=== PATIENT | female | born 1935 | race Caucasian/White ===

== ENCOUNTER 2017-10-16 15:46 | Inpatient (IN) ==
[2017-10-16] MEDS ORDERED: MAGNESIUM SULF RIDER 2 GM in PREMIX 1 EACH IV STA (15:59)
[2017-10-16] MEDS ORDERED: ONDANSETRON 4 MG/2 ML VIAL IV STA (15:59)
[2017-10-16] MEDS ORDERED: methylPREDNISolone SOD SUC 125 MG/2 ML VIAL IV STA (15:59)
[2017-10-16] MEDS ORDERED: LEVOFLOXACIN INJ 750 MG in PREMIX 1 EACH IV STA (15:59)
[2017-10-16] MEDS ORDERED: ALBUTEROL 2.5 MG/3 ML NEB RESP TX SCH (16:00)
[2017-10-16] MEDS ORDERED: ONDANSETRON 4 MG/2 ML VIAL ONE (16:02)
[2017-10-16] MEDS ORDERED: methylPREDNISolone SOD SUC 125 MG/2 ML VIAL ONE (16:02)
[2017-10-16] MEDS ORDERED: MAGNESIUM SULF RIDER 50 ML IV ONE (16:03)
[2017-10-16 16:35] LABS: Basophils % 0.1 % (0.0-0.8); Hematocrit 40.2 VOL% (35.7-47.0); Immature Granulocytes % 0.3 %; Immature Granulocytes Absolute 0.03 #; Lymphocytes % 10.7 % (21.3-54.2); Mean Corpuscular HGB Conc 34.8 GM/DL (32-36); Mean Corpuscular Hemoglobin 33 PG (27-34); Mean Corpuscular Volume 93.7 FL (87-102); Mean Platelet Volume 10.7 FL (9.6-12.0); Monocytes # 0.4 10*3/uL (0.11-0.8); Monocytes % 4.2 % (1.7-12.7); Neutrophils # 7.8 10*3/uL (1.4-7.4); Neutrophils % 84.7 % (38.7-73.9); Platelet Count 209 T/CUMM (130-400); Red Blood Count 4.29 MC/CUMM (3.8-5.5); Red Cell Distribution Width 13.2 % (9.3-17.3); White Blood Count 9.2 T/CUMM (4-12)
[2017-10-16] MEDS ORDERED: LEVOFLOXACIN INJ 150 ML IV ONE (16:38)
[2017-10-16 16:46] LABS: INR 1.1; PT Patient Result 11.3 SECS; Partial Thromboplastin Time 26.8 SECS (0-40)
[2017-10-16 16:55] LABS: Alanine Aminotransferase 25 U/L (13-56); Albumin 3.8 G/DL (3.4-5.0); Alkaline Phosphatase 41 U/L (45-117); Aspartate Amino Transferase 45 U/L (0-37); Blood Urea Nitrogen 23 MG/DL (7-18); CKMB % 5.1 %; Calcium 9.3 MG/DL (8.5-10.1); Glucose 172 MG/DL (74-106); Osmolality,Calculated 258.5 MOS/KG (273-304); Potassium 4.2 MMOL/L (3.5-5.1); Sodium 125 MMOL/L (136-145); Total Protein 7.3 G/DL (6.4-8.3); Troponin I Only < 0.015 NG/ML (0.00-0.045)
[2017-10-16 17:04] LABS: ABG Base Excess -2.3 MMOL/L (-2.5-2.5); ABG HCO3 22.5 MMOL/L (20-26); ABG Oxygen Saturation 97.6 % (95-100); ABG PH 7.298 (7.35-7.45)
[2017-10-16] MEDS ORDERED: ACETAMINOPHEN 325 MG TABLET PO PRN (17:53)
[2017-10-16] MEDS ORDERED: ALBUTEROL/IPRATROPIUM 3 ML NEB RESP TX PRN (17:55)
[2017-10-16] MEDS ORDERED: DEXTROSE 50% 25 GM/50 ML VIAL IV PRN (17:59)
[2017-10-16] MEDS ORDERED: FUROSEMIDE 40 MG/4 ML VIAL IV STA (17:59)
[2017-10-16] MEDS ORDERED: GLUCAGON 1 MG VIAL IM PRN (17:59)
[2017-10-16] MEDS ORDERED: FUROSEMIDE 40 MG/4 ML VIAL ONE (18:03)
[2017-10-16] MEDS: ALBUTEROL/IPRATROPIUM 3 ML NEB RESP TX SCH (19:42)
[2017-10-16] MEDS ORDERED: AMINOPHYLLINE 250 MG in SODIUM CHLORIDE 0.9% 100 ML IV ONE (20:13)
[2017-10-16 20:18] LABS: Apearance,Urine Clear (Clear); Glucose,Urine (UA) Negative (Negative); Ketones,Urine Negative (Negative); Protein,Urine 100 MG/DL; Urine Color Yellow (Yellow)
[2017-10-16 20:19] LABS: Bilirubin,Urine Negative (Negative); Blood, Urine Negative (Negative); Nitrite,Urine Negative (Negative); Urine Urobilinogen 0.2 EU/DL (0.2-1.0)
[2017-10-16] MEDS: AZTREONAM 2,000 MG in SYRINGE 1 EACH IV SCH (20:44)
[2017-10-16] MEDS: SODIUM CHLORIDE 0.9% 1,000 ML IV SCH (20:44)
[2017-10-16] MEDS: INSULIN REGULAR 100 UNIT/ML SUBCUT SCH (20:44)
[2017-10-16] MEDS: ALBUTEROL 2 MG TABLET PO SCH ×2 (20:44→23:25)
[2017-10-16] MEDS ORDERED: ENOXAPARIN 30 MG/0.3 ML SYRINGE SUBCUT SCH (21:00)
[2017-10-16] MEDS ORDERED: MORPHINE 2 MG/1 ML SYRINGE IV ONE (21:14)
[2017-10-16] MEDS ORDERED: MORPHINE 10 MG/1 ML VIAL IV ONE (21:30)
[2017-10-16] MEDS: ONDANSETRON 4 MG/2 ML VIAL IV PRN (21:32)
[2017-10-16 21:56] LABS: ABG Base Excess -3.3 MMOL/L (-2.5-2.5); ABG HCO3 21.5 MMOL/L (20-26); ABG Oxygen Saturation 91.2 % (95-100); ABG PCO2 46.1 MM HG (35-48); ABG PH 7.309 (7.35-7.45); ABG PO2 68.5 MM HG (80-95); ABG TCO2 20.7 MMOL/L (23-27); Allen Test Positive
[2017-10-16] MEDS: methylPREDNISolone SOD SUC 40 MG/1 ML VIAL IV SCH (23:25)
[2017-10-17] MEDS: ALBUTEROL/IPRATROPIUM 3 ML NEB RESP TX SCH ×4 (00:08→19:52)
[2017-10-17] MEDS: AMINOPHYLLINE 500 MG in SODIUM CHLORIDE 0.9% 480 ML IV SCH (00:35)
[2017-10-17 03:21] LABS: ABG HCO3 22.6 MMOL/L (20-26); ABG Oxygen Saturation 91.4 % (95-100); ABG PCO2 41.2 MM HG (35-48); ABG PH 7.361 (7.35-7.45); ABG PO2 64.7 MM HG (80-95); ABG TCO2 20.6 MMOL/L (23-27)
[2017-10-17 04:03] LABS: Eosinophils % 0.1 % (0.00-10.9); Hematocrit 34.9 VOL% (35.7-47.0); Hemoglobin 12.4 GM/DL (12.0-16.0); Immature Granulocytes % 0.3 %; Immature Granulocytes Absolute 0.02 #; Lymphocytes # 0.8 10*3/uL (1.4-4.0); Lymphocytes % 10.3 % (21.3-54.2); Mean Corpuscular HGB Conc 35.5 GM/DL (32-36); Mean Corpuscular Hemoglobin 32 PG (27-34); Mean Corpuscular Volume 90.9 FL (87-102); Mean Platelet Volume 10.2 FL (9.6-12.0); Monocytes # 0.2 10*3/uL (0.11-0.8); Monocytes % 2.9 % (1.7-12.7); Neutrophils # 6.3 10*3/uL (1.4-7.4); Neutrophils % 86.4 % (38.7-73.9); Platelet Count 191 T/CUMM (130-400); Red Blood Count 3.84 MC/CUMM (3.8-5.5); Red Cell Distribution Width 13.2 % (9.3-17.3); White Blood Count 7.3 T/CUMM (4-12)
[2017-10-17] MEDS: methylPREDNISolone SOD SUC 40 MG/1 ML VIAL IV SCH ×4 (04:27→22:02)
[2017-10-17] MEDS: AZTREONAM 2,000 MG in SYRINGE 1 EACH IV SCH ×4 (04:27→22:12)
[2017-10-17 04:39] LABS: Calcium 8.2 MG/DL (8.5-10.1); Osmolality,Calculated 253.1 MOS/KG (273-304); Thyroid Stimulating Hormone 3.07 uIU/ml (0.358-3.74)
[2017-10-17 05:03] LABS: CKMB % 4.5 %
[2017-10-17 05:05] LABS: Troponin I Only 0.778 NG/ML (0.00-0.045)
[2017-10-17] MEDS ORDERED: FUROSEMIDE 40 MG/4 ML VIAL IV ONE (05:19)
[2017-10-17] MEDS ORDERED: POTASSIUM CHLORIDE RIDER 10 MEQ in PREMIX 1 EACH IV PRN (05:20)
[2017-10-17] MEDS ORDERED: POTASSIUM CHLORIDE INJ 50 MEQ in SODIUM CHLORIDE 0.9% 500 ML IV ONE (05:30)
[2017-10-17] MEDS: ALBUTEROL 2 MG TABLET PO SCH ×3 (07:00→22:13)
[2017-10-17] MEDS: INSULIN REGULAR 100 UNIT/ML SUBCUT SCH ×4 (08:49→21:59)
[2017-10-17] MEDS: PANTOPRAZOLE 40 MG TABLET PO SCH (08:50)
[2017-10-17] MEDS: NICOTINE 14 MG/24 HR PATCH TRANSDERM SCH (08:50)
[2017-10-17] MEDS: MONTELUKAST 10 MG TABLET PO SCH (08:50)
[2017-10-17] MEDS: SODIUM CHLORIDE 0.9% 1,000 ML IV SCH (09:43)
[2017-10-17] MEDS: MORPHINE 10 MG/1 ML VIAL IV PRN ×2 (10:11→14:22)
[2017-10-17] MEDS ORDERED: PRAVASTATIN 40 MG TABLET PO SCH (11:30)
[2017-10-17] MEDS: ASPIRIN EC 325 MG TABLET PO SCH (12:17)
[2017-10-17] MEDS: amLODIPine 10 MG TABLET PO SCH (12:17)
[2017-10-17 13:05] LABS: CKMB % 3.5 %
[2017-10-17 13:12] LABS: Troponin I Only 1.69 NG/ML (0.00-0.045)
[2017-10-17] MEDS ORDERED: ENOXAPARIN 30 MG/0.3 ML SYRINGE SUBCUT ONE (13:44)
[2017-10-17] MEDS ORDERED: NITROGLYCERIN 2% OINT 1 INCH/GM PACK TOP SCH (14:00)
[2017-10-17 15:39] LABS: CKMB % 3.1 %; Troponin I Only 1.85 NG/ML (0.00-0.045)
[2017-10-17] MEDS: NITROGLYCERIN DRIP 50 MG/250 ML BOTTLE IV SCH (16:47)
[2017-10-17] MEDS: FUROSEMIDE 40 MG/4 ML VIAL IV SCH (17:21)
[2017-10-17] MEDS: ENOXAPARIN 60 MG/0.6 ML SYRINGE SUBCUT SCH (22:00)
[2017-10-18] MEDS: ALBUTEROL/IPRATROPIUM 3 ML NEB RESP TX SCH ×4 (01:20→19:25)
[2017-10-18] MEDS: MORPHINE 10 MG/1 ML VIAL IV PRN (03:37)
[2017-10-18] MEDS: AZTREONAM 2,000 MG in SYRINGE 1 EACH IV SCH ×2 (03:45→08:11)
[2017-10-18 05:19] LABS: Osmolality,Calculated 252.3 MOS/KG (273-304); Potassium 3.4 MMOL/L (3.5-5.1)
[2017-10-18] MEDS: methylPREDNISolone SOD SUC 40 MG/1 ML VIAL IV SCH ×4 (06:02→21:59)
[2017-10-18] MEDS: ALBUTEROL 2 MG TABLET PO SCH ×3 (06:05→21:51)
[2017-10-18 06:49] LABS: CKMB % 2.6 %
[2017-10-18 06:56] LABS: Troponin I Only 1.55 NG/ML (0.00-0.045)
[2017-10-18] MEDS: AMINOPHYLLINE 500 MG in SODIUM CHLORIDE 0.9% 480 ML IV SCH ×2 (07:07→20:34)
[2017-10-18] MEDS: ONDANSETRON 4 MG/2 ML VIAL IV PRN (07:38)
[2017-10-18] MEDS: POTASSIUM CHLORIDE 20 MEQ TABLET PO PRN ×3 (08:08→13:57)
[2017-10-18] MEDS: MONTELUKAST 10 MG TABLET PO SCH (08:08)
[2017-10-18] MEDS: ASPIRIN EC 325 MG TABLET PO SCH (08:08)
[2017-10-18] MEDS: NICOTINE 14 MG/24 HR PATCH TRANSDERM SCH (08:09)
[2017-10-18] MEDS: PANTOPRAZOLE 40 MG TABLET PO SCH (08:10)
[2017-10-18] MEDS: FUROSEMIDE 40 MG/4 ML VIAL IV SCH ×2 (08:10→16:24)
[2017-10-18] MEDS: INSULIN REGULAR 100 UNIT/ML SUBCUT SCH ×4 (08:10→22:10)
[2017-10-18] MEDS: ENOXAPARIN 60 MG/0.6 ML SYRINGE SUBCUT SCH ×2 (08:10→21:56)
[2017-10-18 08:13] LABS: Risk Ratio 2.25; VLDL CHOLESTEROL 13.2 MG/DL
[2017-10-18] MEDS: amLODIPine 10 MG TABLET PO SCH (08:13)
[2017-10-18] MEDS: SODIUM CHLORIDE 0.9% 1,000 ML IV SCH (13:31)
[2017-10-18] MEDS ORDERED: PHENOL 1.4% THROAT SPRAY 177 ML BOTTLE PO ONE (13:38)
[2017-10-18] MEDS ORDERED: PHENOL 1.4% THROAT SPRAY 177 ML BOTTLE PO PRN (13:38)
[2017-10-18] MEDS ORDERED: MAGNESIUM SULF RIDER 2 GM in PREMIX 1 EACH IV ONE (14:16)
[2017-10-18] MEDS ORDERED: COSYNTROPIN 0.25 MG VIAL IV ONE (15:00)
[2017-10-18] MEDS: AZTREONAM 1,000 MG in SYRINGE 1 EACH IV SCH ×2 (16:24→22:18)
[2017-10-18] MEDS ORDERED: LEVOFLOXACIN INJ 750 MG in PREMIX 1 EACH IV SCH (18:00)
[2017-10-18] MEDS: MULTIVITAMIN (OCUVITE) TABLET PO SCH (21:50)
[2017-10-18] MEDS: PRAVASTATIN 40 MG TABLET PO SCH (21:51)
[2017-10-18] MEDS: ALPRAZolam 0.5 MG TABLET PO PRN (22:24)
[2017-10-19] MEDS: ALBUTEROL/IPRATROPIUM 3 ML NEB RESP TX SCH ×4 (01:37→19:47)
[2017-10-19] MEDS: SODIUM CHLORIDE 0.9% 1,000 ML IV SCH (01:45)
[2017-10-19] MEDS: AZTREONAM 1,000 MG in SYRINGE 1 EACH IV SCH ×4 (03:58→20:44)
[2017-10-19] MEDS ORDERED: COSYNTROPIN 0.25 MG VIAL IV ONE ×2 (04:00→08:00)
[2017-10-19 05:10] LABS: Calcium 7.6 MG/DL (8.5-10.1); Osmolality,Calculated 259.9 MOS/KG (273-304); Potassium 4.3 MMOL/L (3.5-5.1)
[2017-10-19] MEDS: methylPREDNISolone SOD SUC 40 MG/1 ML VIAL IV SCH ×4 (05:37→21:01)
[2017-10-19] MEDS: ALBUTEROL 2 MG TABLET PO SCH ×3 (06:17→21:01)
[2017-10-19] MEDS: NITROGLYCERIN DRIP 50 MG/250 ML BOTTLE IV SCH (06:24)
[2017-10-19] MEDS: INSULIN REGULAR 100 UNIT/ML SUBCUT SCH ×4 (08:35→20:26)
[2017-10-19] MEDS: FUROSEMIDE 40 MG/4 ML VIAL IV SCH ×2 (08:35→16:36)
[2017-10-19] MEDS: MULTIVITAMIN (OCUVITE) TABLET PO SCH ×2 (08:36→20:43)
[2017-10-19] MEDS: NICOTINE 14 MG/24 HR PATCH TRANSDERM SCH (08:36)
[2017-10-19] MEDS: ALPRAZolam 0.5 MG TABLET PO PRN ×2 (08:36→20:43)
[2017-10-19] MEDS: MONTELUKAST 10 MG TABLET PO SCH (08:36)
[2017-10-19] MEDS: PANTOPRAZOLE 40 MG TABLET PO SCH (08:38)
[2017-10-19] MEDS: amLODIPine 10 MG TABLET PO SCH (08:38)
[2017-10-19] MEDS: ASPIRIN EC 325 MG TABLET PO SCH (08:38)
[2017-10-19] MEDS: diphenhydrAMINE 25 MG/10 ML UDCUP PO PRN (11:39)
[2017-10-19] MEDS: DORNASE ALFA 2.5 MG/2.5 ML VIAL RESP TX SCH (19:59)
[2017-10-19] MEDS: PRAVASTATIN 40 MG TABLET PO SCH (20:43)
[2017-10-19] MEDS: POLYVINYL ALCOHOL 1.4% OPH SOLN 15 ML BOTTLE BOTH EYES PRN (20:43)
[2017-10-19] MEDS: ENOXAPARIN 60 MG/0.6 ML SYRINGE SUBCUT SCH (20:45)
[2017-10-19] MEDS: DOCUSATE SODIUM 100 MG CAPSULE PO PRN (21:57)
[2017-10-20] MEDS: ALBUTEROL/IPRATROPIUM 3 ML NEB RESP TX SCH ×4 (00:19→19:59)
[2017-10-20] MEDS: MORPHINE 10 MG/1 ML VIAL IV PRN (00:51)
[2017-10-20] MEDS: AZTREONAM 1,000 MG in SYRINGE 1 EACH IV SCH ×4 (05:20→21:27)
[2017-10-20] MEDS: methylPREDNISolone SOD SUC 40 MG/1 ML VIAL IV SCH ×3 (05:22→21:23)
[2017-10-20] MEDS: ALBUTEROL 2 MG TABLET PO SCH ×3 (05:23→21:42)
[2017-10-20 05:29] LABS: Basophils % 0.1 % (0.0-0.8); Hematocrit 33.7 VOL% (35.7-47.0); Hemoglobin 11.7 GM/DL (12.0-16.0); Immature Granulocytes % 0.8 %; Immature Granulocytes Absolute 0.11 #; Lymphocytes # 0.9 10*3/uL (1.4-4.0); Lymphocytes % 6.7 % (21.3-54.2); Mean Corpuscular HGB Conc 34.7 GM/DL (32-36); Mean Corpuscular Hemoglobin 33 PG (27-34); Mean Corpuscular Volume 94.7 FL (87-102); Monocytes # 0.3 10*3/uL (0.11-0.8); Monocytes % 2.5 % (1.7-12.7); Neutrophils # 12.1 10*3/uL (1.4-7.4); Neutrophils % 89.9 % (38.7-73.9); Platelet Count 205 T/CUMM (130-400); Red Blood Count 3.56 MC/CUMM (3.8-5.5); Red Cell Distribution Width 13.5 % (9.3-17.3); White Blood Count 13.5 T/CUMM (4-12)
[2017-10-20 05:48] LABS: Calcium 7.8 MG/DL (8.5-10.1); Osmolality,Calculated 268.6 MOS/KG (273-304); Potassium 4.1 MMOL/L (3.5-5.1)
[2017-10-20] MEDS: DORNASE ALFA 2.5 MG/2.5 ML VIAL RESP TX SCH ×2 (07:46→19:59)
[2017-10-20] MEDS: INSULIN REGULAR 100 UNIT/ML SUBCUT SCH ×4 (08:54→21:26)
[2017-10-20] MEDS: AMINOPHYLLINE 500 MG in SODIUM CHLORIDE 0.9% 480 ML IV SCH (09:34)
[2017-10-20] MEDS: MONTELUKAST 10 MG TABLET PO SCH (09:35)
[2017-10-20] MEDS: amLODIPine 10 MG TABLET PO SCH (09:35)
[2017-10-20] MEDS: DOCUSATE SODIUM 100 MG CAPSULE PO PRN ×2 (09:35→21:21)
[2017-10-20] MEDS: MULTIVITAMIN (OCUVITE) TABLET PO SCH ×2 (09:36→21:21)
[2017-10-20] MEDS: ISOSORBIDE MONONITRATE 30 MG TABLET PO SCH (09:36)
[2017-10-20] MEDS: PANTOPRAZOLE 40 MG TABLET PO SCH (09:36)
[2017-10-20] MEDS: ASPIRIN EC 325 MG TABLET PO SCH (09:36)
[2017-10-20] MEDS: NICOTINE 14 MG/24 HR PATCH TRANSDERM SCH (09:38)
[2017-10-20] MEDS: FUROSEMIDE 40 MG/4 ML VIAL IV SCH ×2 (09:39→15:34)
[2017-10-20] MEDS: THEOPHYLLINE ER (24 HR) 200 MG CAPSULE PO SCH (12:57)
[2017-10-20] MEDS: LACTULOSE 20 GM/30 ML UDCUP PO PRN (17:27)
[2017-10-20] MEDS ORDERED: LEVOFLOXACIN 750 MG TABLET PO SCH (20:00)
[2017-10-20] MEDS: diphenhydrAMINE 25 MG/10 ML UDCUP PO PRN (21:21)
[2017-10-20] MEDS: PRAVASTATIN 40 MG TABLET PO SCH (21:21)
[2017-10-20] MEDS: ENOXAPARIN 60 MG/0.6 ML SYRINGE SUBCUT SCH (21:22)
[2017-10-21] MEDS: ALBUTEROL/IPRATROPIUM 3 ML NEB RESP TX SCH ×4 (00:24→20:11)
[2017-10-21] MEDS: AZTREONAM 1,000 MG in SYRINGE 1 EACH IV SCH ×2 (02:08→09:37)
[2017-10-21] MEDS: ALPRAZolam 0.5 MG TABLET PO PRN ×2 (02:24→21:45)
[2017-10-21] MEDS: LACTULOSE 20 GM/30 ML UDCUP PO PRN ×2 (02:24→10:16)
[2017-10-21 05:21] LABS: Basophils % 0.1 % (0.0-0.8); Hematocrit 31.5 VOL% (35.7-47.0); Hemoglobin 11.2 GM/DL (12.0-16.0); Immature Granulocytes % 0.9 %; Immature Granulocytes Absolute 0.11 #; Lymphocytes % 7.6 % (21.3-54.2); Mean Corpuscular HGB Conc 35.6 GM/DL (32-36); Mean Corpuscular Hemoglobin 32 PG (27-34); Mean Corpuscular Volume 90.8 FL (87-102); Mean Platelet Volume 10.6 FL (9.6-12.0); Monocytes # 0.6 10*3/uL (0.11-0.8); Monocytes % 4.5 % (1.7-12.7); Neutrophils # 10.9 10*3/uL (1.4-7.4); Neutrophils % 86.9 % (38.7-73.9); Platelet Count 201 T/CUMM (130-400); Red Blood Count 3.47 MC/CUMM (3.8-5.5); Red Cell Distribution Width 13.6 % (9.3-17.3); White Blood Count 12.5 T/CUMM (4-12)
[2017-10-21 05:55] LABS: Calcium 7.7 MG/DL (8.5-10.1); Osmolality,Calculated 278.4 MOS/KG (273-304); Potassium 3.8 MMOL/L (3.5-5.1)
[2017-10-21] MEDS: ALBUTEROL 2 MG TABLET PO SCH ×3 (06:00→21:45)
[2017-10-21] MEDS: methylPREDNISolone SOD SUC 40 MG/1 ML VIAL IV SCH ×3 (06:00→21:45)
[2017-10-21] MEDS: DORNASE ALFA 2.5 MG/2.5 ML VIAL RESP TX SCH ×2 (08:14→20:11)
[2017-10-21] MEDS: INSULIN REGULAR 100 UNIT/ML SUBCUT SCH ×4 (09:17→20:23)
[2017-10-21] MEDS: THEOPHYLLINE ER (24 HR) 200 MG CAPSULE PO SCH (09:18)
[2017-10-21] MEDS: DOCUSATE SODIUM 100 MG CAPSULE PO PRN (09:18)
[2017-10-21] MEDS: ASPIRIN EC 325 MG TABLET PO SCH (09:18)
[2017-10-21] MEDS: ISOSORBIDE MONONITRATE 30 MG TABLET PO SCH (09:18)
[2017-10-21] MEDS: amLODIPine 10 MG TABLET PO SCH (09:18)
[2017-10-21] MEDS: NICOTINE 14 MG/24 HR PATCH TRANSDERM SCH (09:19)
[2017-10-21] MEDS: MONTELUKAST 10 MG TABLET PO SCH (09:19)
[2017-10-21] MEDS: FUROSEMIDE 40 MG/4 ML VIAL IV SCH (09:22)
[2017-10-21] MEDS: PANTOPRAZOLE 40 MG TABLET PO SCH (09:28)
[2017-10-21] MEDS: MULTIVITAMIN (OCUVITE) TABLET PO SCH ×2 (09:29→21:46)
[2017-10-21] MEDS: FAMOTIDINE 20 MG TABLET PO SCH (10:13)
[2017-10-21] MEDS: POLYVINYL ALCOHOL 1.4% OPH SOLN 15 ML BOTTLE BOTH EYES PRN (10:21)
[2017-10-21] MEDS ORDERED: BISACODYL 10 MG SUPP RECTAL ONE (12:41)
[2017-10-21] MEDS ORDERED: TUBERCULIN SKIN TEST 0.1 ML SYRINGE INTRADERM ONE (13:09)
[2017-10-21] MEDS: FUROSEMIDE 40 MG TABLET PO SCH (15:10)
[2017-10-21] MEDS ORDERED: ENOXAPARIN 30 MG/0.3 ML SYRINGE SUBCUT SCH (21:00)
[2017-10-21] MEDS: ONDANSETRON 4 MG/2 ML VIAL IV PRN (21:44)
[2017-10-21] MEDS: PRAVASTATIN 40 MG TABLET PO SCH (21:45)
[2017-10-22] MEDS: ALBUTEROL/IPRATROPIUM 3 ML NEB RESP TX SCH ×4 (00:54→19:52)
[2017-10-22] MEDS ORDERED: BISACODYL 10 MG SUPP RECTAL PRN (02:32)
[2017-10-22] MEDS ORDERED: DILTIAZEM 50 MG/10 ML VIAL IV ONE ×2 (02:37→03:00)
[2017-10-22] MEDS ORDERED: SODIUM PHOSPHATE ENEMA 133 ML BOTTLE RECTAL PRN (02:49)
[2017-10-22] MEDS ORDERED: SODIUM PHOSPHATE ENEMA 133 ML BOTTLE RECTAL ONE (03:00)
[2017-10-22 03:14] LABS: ABG Base Excess -2.5 MMOL/L (-2.5-2.5); ABG HCO3 22.1 MMOL/L (20-26); ABG Oxygen Saturation 87.3 % (95-100); ABG PCO2 40.4 MM HG (35-48); ABG PH 7.358 (7.35-7.45); ABG PO2 54.9 MM HG (80-95); ABG TCO2 20.5 MMOL/L (23-27)
[2017-10-22] MEDS: ONDANSETRON 4 MG/2 ML VIAL IV PRN (03:30)
[2017-10-22] MEDS ORDERED: ETOMIDATE 20 MG/10 ML VIAL IV ONE (04:06)
[2017-10-22] MEDS ORDERED: SUCCINYLCHOLINE 200 MG/10 ML VIAL ONE (04:06)
[2017-10-22] MEDS ORDERED: PROPOFOL 1,000 MG/100 ML BOTTLE IV ONE (04:44)
[2017-10-22] MEDS ORDERED: DILTIAZEM 100 MG VIAL.ADD IV ONE (04:45)
[2017-10-22] MEDS ORDERED: SODIUM CHLORIDE 0.9% 100 ML IV ONE (04:46)
[2017-10-22] MEDS ORDERED: PROPOFOL 1,000 MG/100 ML BOTTLE IV SCH (05:00)
[2017-10-22 05:15] LABS: Basophils % 0.1 % (0.0-0.8); Hematocrit 31.5 VOL% (35.7-47.0); Immature Granulocytes % 1.5 %; Immature Granulocytes Absolute 0.21 #; Lymphocytes % 6.6 % (21.3-54.2); Mean Corpuscular HGB Conc 34.9 GM/DL (32-36); Mean Corpuscular Hemoglobin 32 PG (27-34); Mean Corpuscular Volume 92.6 FL (87-102); Mean Platelet Volume 10.8 FL (9.6-12.0); Monocytes # 0.7 10*3/uL (0.11-0.8); Monocytes % 4.5 % (1.7-12.7); Neutrophils # 12.5 10*3/uL (1.4-7.4); Neutrophils % 87.3 % (38.7-73.9); Platelet Count 212 T/CUMM (130-400); Red Cell Distribution Width 13.5 % (9.3-17.3); White Blood Count 14.3 T/CUMM (4-12)
[2017-10-22] MEDS: DILTIAZEM INJ 100 MG in SODIUM CHLORIDE 0.9% 100 ML IV SCH ×3 (05:15→23:01)
[2017-10-22] MEDS ORDERED: SODIUM CHLORIDE 0.9% 1,000 ML IV PRN (05:41)
[2017-10-22 05:49] LABS: ABG Base Excess -5.5 MMOL/L (-2.5-2.5); ABG HCO3 19.8 MMOL/L (20-26); ABG Oxygen Saturation 93.4 % (95-100); ABG PCO2 52.7 MM HG (35-48); ABG PH 7.236 (7.35-7.45); ABG PO2 78.2 MM HG (80-95); ABG TCO2 20.8 MMOL/L (23-27)
[2017-10-22 05:53] LABS: Calcium 8.2 MG/DL (8.5-10.1); Osmolality,Calculated 282.2 MOS/KG (273-304); Potassium 3.7 MMOL/L (3.5-5.1)
[2017-10-22 05:59] LABS: Hematocrit 28.5 VOL% (35.7-47.0); Hemoglobin 9.9 GM/DL (12.0-16.0)
[2017-10-22] MEDS: PROPOFOL 1,000 MG/100 ML BOTTLE IV SCH ×3 (06:27→23:02)
[2017-10-22] MEDS: ALBUTEROL 2 MG TABLET PO SCH ×3 (06:35→21:55)
[2017-10-22] MEDS: methylPREDNISolone SOD SUC 40 MG/1 ML VIAL IV SCH ×3 (06:35→21:55)
[2017-10-22] MEDS: DORNASE ALFA 2.5 MG/2.5 ML VIAL RESP TX SCH ×2 (07:29→19:52)
[2017-10-22 08:31] LABS: Basophils % 0.1 % (0.0-0.8); Hemoglobin 9.9 GM/DL (12.0-16.0); Immature Granulocytes % 1.4 %; Immature Granulocytes Absolute 0.23 #; Lymphocytes % 5.9 % (21.3-54.2); Mean Corpuscular HGB Conc 35.4 GM/DL (32-36); Mean Corpuscular Hemoglobin 34 PG (27-34); Mean Corpuscular Volume 95.2 FL (87-102); Mean Platelet Volume 10.8 FL (9.6-12.0); Monocytes # 0.8 10*3/uL (0.11-0.8); Monocytes % 4.6 % (1.7-12.7); Neutrophils # 14.4 10*3/uL (1.4-7.4); Platelet Count 186 T/CUMM (130-400); Red Blood Count 2.94 MC/CUMM (3.8-5.5); Red Cell Distribution Width 13.8 % (9.3-17.3); White Blood Count 16.4 T/CUMM (4-12)
[2017-10-22] MEDS: INSULIN REGULAR 100 UNIT/ML SUBCUT SCH ×4 (08:44→20:19)
[2017-10-22] MEDS: amLODIPine 10 MG TABLET PO SCH (08:45)
[2017-10-22] MEDS: NICOTINE 14 MG/24 HR PATCH TRANSDERM SCH (08:50)
[2017-10-22] MEDS: FAMOTIDINE 20 MG TABLET PO SCH (08:50)
[2017-10-22] MEDS: ISOSORBIDE MONONITRATE 30 MG TABLET PO SCH (08:50)
[2017-10-22] MEDS: FUROSEMIDE 40 MG TABLET PO SCH ×2 (08:50→15:09)
[2017-10-22] MEDS ORDERED: ASPIRIN EC 81 MG TABLET PO SCH (09:00)
[2017-10-22] MEDS: MONTELUKAST 10 MG TABLET PO SCH (09:33)
[2017-10-22] MEDS: MULTIVITAMIN (OCUVITE) TABLET PO SCH ×2 (09:33→21:55)
[2017-10-22] MEDS ORDERED: LACTULOSE 20 GM/30 ML UDCUP PO PRN (11:02)
[2017-10-22] MEDS ORDERED: PHENYLEPHRINE DRIP 40 MG/250 ML PREMIX IV ONE (11:33)
[2017-10-22] MEDS: PHENYLEPHRINE DRIP 40 MG/250 ML PREMIX IV SCH ×2 (11:44→20:17)
[2017-10-22] MEDS: THEOPHYLLINE ER (24 HR) 200 MG CAPSULE PO SCH (14:31)
[2017-10-22] MEDS: THEOPHYLLINE 5.33 MG/ML 30 ML/BOTTLE PO SCH ×2 (15:08→21:55)
[2017-10-22 18:03] LABS: Hematocrit 30.2 VOL% (35.7-47.0); Hemoglobin 10.6 GM/DL (12.0-16.0)
[2017-10-22] MEDS: MEROPENEM 500 MG in SYRINGE 1 EACH IV SCH (19:07)
[2017-10-22] MEDS: VANCOMYCIN INJ 750 MG in SODIUM CHLORIDE 0.9% 250 ML IV SCH (20:16)
[2017-10-22] MEDS: PRAVASTATIN 40 MG TABLET PO SCH (21:55)
[2017-10-23] MEDS: ALBUTEROL/IPRATROPIUM 3 ML NEB RESP TX SCH ×4 (01:39→19:53)
[2017-10-23] MEDS: PHENYLEPHRINE DRIP 40 MG/250 ML PREMIX IV SCH ×4 (03:56→21:05)
[2017-10-23 04:57] LABS: Basophils % 0.1 % (0.0-0.8); Hematocrit 26.2 VOL% (35.7-47.0); Hemoglobin 9.2 GM/DL (12.0-16.0); Immature Granulocytes % 3.2 %; Immature Granulocytes Absolute 0.45 #; Lymphocytes # 0.9 10*3/uL (1.4-4.0); Lymphocytes % 6.5 % (21.3-54.2); Mean Corpuscular HGB Conc 35.1 GM/DL (32-36); Mean Corpuscular Hemoglobin 32 PG (27-34); Mean Corpuscular Volume 92.3 FL (87-102); Mean Platelet Volume 11.3 FL (9.6-12.0); Monocytes # 0.3 10*3/uL (0.11-0.8); Monocytes % 2.3 % (1.7-12.7); NRBC # 0.06 10*3/uL; Neutrophils # 12.5 10*3/uL (1.4-7.4); Neutrophils % 87.9 % (38.7-73.9); Platelet Count 210 T/CUMM (130-400); Red Blood Count 2.84 MC/CUMM (3.8-5.5); Red Cell Distribution Width 13.9 % (9.3-17.3); White Blood Count 14.2 T/CUMM (4-12)
[2017-10-23 05:29] LABS: Band Neutrophils 6 % (0-10); Lymphocytes 7 % (20-55); Microcytosis Slight; Myelocytes 1 %; Nucleated Red Blood Cells 2 (0-5); Platelet Estimate Normal; Segmented Neutrophils 85 % (50-85); Total Cells Counted 100
[2017-10-23] MEDS: PROPOFOL 1,000 MG/100 ML BOTTLE IV SCH ×3 (05:35→20:41)
[2017-10-23 05:38] LABS: Calcium 7.6 MG/DL (8.5-10.1); Osmolality,Calculated 284.9 MOS/KG (273-304)
[2017-10-23 06:07] LABS: ABG HCO3 21.1 MMOL/L (20-26); ABG Oxygen Saturation 99.5 % (95-100); ABG PH 7.303 (7.35-7.45); ABG TCO2 20.5 MMOL/L (23-27)
[2017-10-23] MEDS: methylPREDNISolone SOD SUC 40 MG/1 ML VIAL IV SCH ×3 (06:24→22:33)
[2017-10-23] MEDS: ALBUTEROL 2 MG TABLET PO SCH ×3 (06:24→22:33)
[2017-10-23] MEDS: THEOPHYLLINE 5.33 MG/ML 30 ML/BOTTLE PO SCH ×3 (06:24→21:25)
[2017-10-23] MEDS: DILTIAZEM INJ 100 MG in SODIUM CHLORIDE 0.9% 100 ML IV SCH ×3 (06:25→19:27)
[2017-10-23] MEDS: MEROPENEM 500 MG in SYRINGE 1 EACH IV SCH ×2 (07:06→18:38)
[2017-10-23] MEDS: DORNASE ALFA 2.5 MG/2.5 ML VIAL RESP TX SCH ×2 (07:30→19:53)
[2017-10-23] MEDS: INSULIN REGULAR 100 UNIT/ML SUBCUT SCH ×4 (08:59→20:15)
[2017-10-23] MEDS: amLODIPine 10 MG TABLET PO SCH (08:59)
[2017-10-23] MEDS: MULTIVITAMIN (OCUVITE) TABLET PO SCH ×2 (09:02→21:23)
[2017-10-23] MEDS: ISOSORBIDE MONONITRATE 30 MG TABLET PO SCH (09:02)
[2017-10-23] MEDS: MONTELUKAST 10 MG TABLET PO SCH (09:02)
[2017-10-23] MEDS: FAMOTIDINE 20 MG TABLET PO SCH (09:03)
[2017-10-23] MEDS: NICOTINE 14 MG/24 HR PATCH TRANSDERM SCH (09:03)
[2017-10-23] MEDS ORDERED: SODIUM CHLORIDE 0.9% 1,000 ML IV SCH (11:00)
[2017-10-23] MEDS: MORPHINE 10 MG/1 ML VIAL IV PRN (21:23)
[2017-10-23] MEDS: PRAVASTATIN 40 MG TABLET PO SCH (21:23)
[2017-10-24] MEDS: DILTIAZEM INJ 100 MG in SODIUM CHLORIDE 0.9% 100 ML IV SCH ×2 (01:47→08:32)
[2017-10-24] MEDS: ALBUTEROL/IPRATROPIUM 3 ML NEB RESP TX SCH ×4 (02:27→19:28)
[2017-10-24] MEDS: PHENYLEPHRINE DRIP 40 MG/250 ML PREMIX IV SCH ×4 (02:36→21:14)
[2017-10-24 04:27] LABS: ABG Base Excess -6.8 MMOL/L (-2.5-2.5); ABG HCO3 19.5 MMOL/L (20-26); ABG Oxygen Saturation 93.6 % (95-100); ABG PCO2 42.4 MM HG (35-48); ABG PH 7.281 (7.35-7.45); ABG PO2 77.3 MM HG (80-95); ABG TCO2 20.8 MMOL/L (23-27)
[2017-10-24] MEDS: PROPOFOL 1,000 MG/100 ML BOTTLE IV SCH ×4 (04:28→21:21)
[2017-10-24 06:06] LABS: Basophils % 0.2 % (0.0-0.8); Hematocrit 25.4 VOL% (35.7-47.0); Immature Granulocytes % 6.7 %; Immature Granulocytes Absolute 1.19 #; Lymphocytes # 1.2 10*3/uL (1.4-4.0); Mean Corpuscular HGB Conc 35.4 GM/DL (32-36); Mean Corpuscular Hemoglobin 33 PG (27-34); Mean Platelet Volume 10.7 FL (9.6-12.0); Monocytes # 0.4 10*3/uL (0.11-0.8); Neutrophils # 14.8 10*3/uL (1.4-7.4); Neutrophils % 84.1 % (38.7-73.9); Platelet Count 192 T/CUMM (130-400); Red Blood Count 2.73 MC/CUMM (3.8-5.5); Red Cell Distribution Width 14.4 % (9.3-17.3); White Blood Count 17.6 T/CUMM (4-12)
[2017-10-24] MEDS: methylPREDNISolone SOD SUC 40 MG/1 ML VIAL IV SCH ×3 (06:22→22:59)
[2017-10-24] MEDS: THEOPHYLLINE 5.33 MG/ML 30 ML/BOTTLE PO SCH ×3 (06:22→21:21)
[2017-10-24] MEDS: ALBUTEROL 2 MG TABLET PO SCH (06:22)
[2017-10-24 06:25] LABS: Calcium 7.1 MG/DL (8.5-10.1); Osmolality,Calculated 291.7 MOS/KG (273-304); Potassium 3.9 MMOL/L (3.5-5.1)
[2017-10-24] MEDS: MEROPENEM 500 MG in SYRINGE 1 EACH IV SCH ×2 (06:42→18:13)
[2017-10-24 06:45] LABS: Band Neutrophils 3 % (0-10); Lymphocytes 9 % (20-55); Nucleated Red Blood Cells 1 (0-5); Promyelocytes 1 %; Segmented Neutrophils 86 % (50-85); Total Cells Counted 100
[2017-10-24 06:46] LABS: Burr Cells Slight; Microcytosis Slight; Platelet Estimate Adequate
[2017-10-24] MEDS: DORNASE ALFA 2.5 MG/2.5 ML VIAL RESP TX SCH ×2 (08:35→19:32)
[2017-10-24] MEDS: INSULIN REGULAR 100 UNIT/ML SUBCUT SCH ×4 (08:35→20:22)
[2017-10-24] MEDS: MULTIVITAMIN (OCUVITE) TABLET PO SCH ×2 (09:20→20:22)
[2017-10-24] MEDS: MONTELUKAST 10 MG TABLET PO SCH (09:20)
[2017-10-24] MEDS: FAMOTIDINE 20 MG TABLET PO SCH (09:20)
[2017-10-24] MEDS: NICOTINE 14 MG/24 HR PATCH TRANSDERM SCH (09:20)
[2017-10-24] MEDS: ISOSORBIDE MONONITRATE 30 MG TABLET PO SCH (09:20)
[2017-10-24 11:15] LABS: ABG Base Excess -6.6 MMOL/L (-2.5-2.5); ABG HCO3 18.9 MMOL/L (20-26); ABG Oxygen Saturation 90.9 % (95-100); ABG PCO2 38.4 MM HG (35-48); ABG PH 7.307 (7.35-7.45); ABG PO2 62.9 MM HG (80-95); ABG TCO2 17.6 MMOL/L (23-27); Allen Test Positive
[2017-10-24] MEDS: AMIODARONE 200 MG TABLET PO SCH ×2 (11:29→20:22)
[2017-10-24] MEDS: VANCOMYCIN INJ 750 MG in SODIUM CHLORIDE 0.9% 250 ML IV SCH (19:33)
[2017-10-24] MEDS: PRAVASTATIN 40 MG TABLET PO SCH (20:22)
[2017-10-25] MEDS: ALBUTEROL/IPRATROPIUM 3 ML NEB RESP TX SCH ×4 (00:16→19:22)
[2017-10-25] MEDS: PHENYLEPHRINE DRIP 40 MG/250 ML PREMIX IV SCH ×3 (02:47→19:34)
[2017-10-25] MEDS: PROPOFOL 1,000 MG/100 ML BOTTLE IV SCH ×4 (04:13→19:33)
[2017-10-25 04:30] LABS: ABG HCO3 19.4 MMOL/L (20-26); ABG Oxygen Saturation 96.6 % (95-100); ABG PCO2 35.2 MM HG (35-48); ABG PH 7.342 (7.35-7.45); ABG PO2 84.5 MM HG (80-95); ABG TCO2 17.8 MMOL/L (23-27)
[2017-10-25 04:50] LABS: Basophils % 0.2 % (0.0-0.8); Hematocrit 24.7 VOL% (35.7-47.0); Hemoglobin 8.9 GM/DL (12.0-16.0); Immature Granulocytes % 7.5 %; Immature Granulocytes Absolute 1.27 #; Lymphocytes # 0.8 10*3/uL (1.4-4.0); Lymphocytes % 4.9 % (21.3-54.2); Mean Corpuscular Hemoglobin 33 PG (27-34); Mean Corpuscular Volume 90.8 FL (87-102); Mean Platelet Volume 10.4 FL (9.6-12.0); Monocytes # 0.3 10*3/uL (0.11-0.8); Monocytes % 1.9 % (1.7-12.7); NRBC # 0.06 10*3/uL; Neutrophils # 14.4 10*3/uL (1.4-7.4); Neutrophils % 85.5 % (38.7-73.9); Platelet Count 205 T/CUMM (130-400); Red Blood Count 2.72 MC/CUMM (3.8-5.5); Red Cell Distribution Width 14.5 % (9.3-17.3); White Blood Count 16.9 T/CUMM (4-12)
[2017-10-25 05:16] LABS: Calcium 6.7 MG/DL (8.5-10.1); Potassium 4.2 MMOL/L (3.5-5.1)
[2017-10-25] MEDS: THEOPHYLLINE 5.33 MG/ML 30 ML/BOTTLE PO SCH ×3 (05:52→22:51)
[2017-10-25] MEDS: methylPREDNISolone SOD SUC 40 MG/1 ML VIAL IV SCH ×3 (05:52→22:20)
[2017-10-25] MEDS: MEROPENEM 500 MG in SYRINGE 1 EACH IV SCH ×2 (05:52→18:26)
[2017-10-25] MEDS: ALBUTEROL 2 MG TABLET PO SCH ×5 (06:29→22:50)
[2017-10-25 06:44] LABS: Band Neutrophils 1 % (0-10); Lymphocytes 9 % (20-55); Platelet Estimate Normal; Segmented Neutrophils 89 % (50-85); Total Cells Counted 100
[2017-10-25] MEDS: INSULIN REGULAR 100 UNIT/ML SUBCUT SCH ×4 (07:45→21:47)
[2017-10-25] MEDS: DORNASE ALFA 2.5 MG/2.5 ML VIAL RESP TX SCH ×2 (07:47→19:22)
[2017-10-25] MEDS: MONTELUKAST 10 MG TABLET PO SCH (08:49)
[2017-10-25] MEDS: FAMOTIDINE 20 MG TABLET PO SCH (08:49)
[2017-10-25] MEDS: AMIODARONE 200 MG TABLET PO SCH ×2 (08:49→22:51)
[2017-10-25] MEDS: MULTIVITAMIN (OCUVITE) TABLET PO SCH ×2 (08:49→22:50)
[2017-10-25] MEDS: ISOSORBIDE MONONITRATE 30 MG TABLET PO SCH (08:50)
[2017-10-25] MEDS: NICOTINE 14 MG/24 HR PATCH TRANSDERM SCH (08:50)
[2017-10-25] MEDS ORDERED: FUROSEMIDE 40 MG/4 ML VIAL IV ONE (13:51)
[2017-10-25] MEDS: PRAVASTATIN 40 MG TABLET PO SCH (22:51)
[2017-10-26] MEDS: ALBUTEROL/IPRATROPIUM 3 ML NEB RESP TX SCH ×4 (00:08→20:54)
[2017-10-26] MEDS: PROPOFOL 1,000 MG/100 ML BOTTLE IV SCH ×4 (02:19→18:15)
[2017-10-26 03:56] LABS: ABG Base Excess -3.2 MMOL/L (-2.5-2.5); ABG HCO3 21.8 MMOL/L (20-26); ABG Oxygen Saturation 98.7 % (95-100); ABG PCO2 33.2 MM HG (35-48); ABG PH 7.404 (7.35-7.45); ABG TCO2 18.3 MMOL/L (23-27); Allen Test Positive; Pt O2 Delivery Device Ventilator
[2017-10-26 06:10] LABS: Basophils % 0.2 % (0.0-0.8); Hematocrit 23.1 VOL% (35.7-47.0); Hemoglobin 8.3 GM/DL (12.0-16.0); Immature Granulocytes % 6.6 %; Immature Granulocytes Absolute 1.13 #; Lymphocytes # 0.5 10*3/uL (1.4-4.0); Lymphocytes % 3.1 % (21.3-54.2); Mean Corpuscular HGB Conc 35.9 GM/DL (32-36); Mean Corpuscular Hemoglobin 33 PG (27-34); Mean Corpuscular Volume 90.6 FL (87-102); Mean Platelet Volume 10.7 FL (9.6-12.0); Monocytes # 0.4 10*3/uL (0.11-0.8); Monocytes % 2.3 % (1.7-12.7); NRBC # 0.08 10*3/uL; Neutrophils % 87.8 % (38.7-73.9); Platelet Count 194 T/CUMM (130-400); Red Blood Count 2.55 MC/CUMM (3.8-5.5); Red Cell Distribution Width 14.5 % (9.3-17.3); White Blood Count 17.1 T/CUMM (4-12)
[2017-10-26 06:16] LABS: INR 0.9; PT Patient Result 9.7 SECS; Partial Thromboplastin Time 26.4 SECS (0-40)
[2017-10-26 06:39] LABS: Band Neutrophils 2 % (0-10); Lymphocytes 6 % (20-55); Nucleated Red Blood Cells 2 (0-5); Segmented Neutrophils 91 % (50-85); Total Cells Counted 100
[2017-10-26 06:41] LABS: Macrocytosis Slight; Platelet Estimate Normal
[2017-10-26] MEDS: THEOPHYLLINE 5.33 MG/ML 30 ML/BOTTLE PO SCH ×3 (07:14→21:28)
[2017-10-26] MEDS: ALBUTEROL 2 MG TABLET PO SCH ×3 (07:16→21:33)
[2017-10-26] MEDS: methylPREDNISolone SOD SUC 40 MG/1 ML VIAL IV SCH ×3 (07:16→21:35)
[2017-10-26] MEDS: MEROPENEM 500 MG in SYRINGE 1 EACH IV SCH ×2 (07:17→17:34)
[2017-10-26] MEDS: PHENYLEPHRINE DRIP 40 MG/250 ML PREMIX IV SCH ×2 (07:18→18:25)
[2017-10-26] MEDS: DORNASE ALFA 2.5 MG/2.5 ML VIAL RESP TX SCH ×2 (08:13→20:58)
[2017-10-26] MEDS: NICOTINE 14 MG/24 HR PATCH TRANSDERM SCH (08:21)
[2017-10-26] MEDS: FAMOTIDINE 20 MG TABLET PO SCH (08:21)
[2017-10-26] MEDS: MONTELUKAST 10 MG TABLET PO SCH (08:21)
[2017-10-26] MEDS: MULTIVITAMIN (OCUVITE) TABLET PO SCH ×2 (08:21→21:26)
[2017-10-26] MEDS: ISOSORBIDE MONONITRATE 30 MG TABLET PO SCH (08:22)
[2017-10-26] MEDS: INSULIN REGULAR 100 UNIT/ML SUBCUT SCH ×4 (08:22→21:27)
[2017-10-26] MEDS: AMIODARONE 200 MG TABLET PO SCH ×2 (08:22→21:26)
[2017-10-26] MEDS ORDERED: EPINEPHrine 1 MG/ML VIAL ET ONE (08:29)
[2017-10-26 09:17] LABS: Calcium 7.2 MG/DL (8.5-10.1); Osmolality,Calculated 303.8 MOS/KG (273-304); Potassium 3.7 MMOL/L (3.5-5.1)
[2017-10-26] MEDS ORDERED: DIGOXIN 0.5 MG/2 ML AMP IV ONE (10:08)
[2017-10-26] MEDS: VANCOMYCIN INJ 750 MG in SODIUM CHLORIDE 0.9% 250 ML IV SCH (18:30)
[2017-10-26] MEDS: PRAVASTATIN 40 MG TABLET PO SCH (21:26)
[2017-10-27] MEDS: ALBUTEROL/IPRATROPIUM 3 ML NEB RESP TX SCH ×4 (01:07→19:33)
[2017-10-27] MEDS: PROPOFOL 1,000 MG/100 ML BOTTLE IV SCH ×3 (01:39→13:15)
[2017-10-27 05:41] LABS: ABG Base Excess -1.3 MMOL/L (-2.5-2.5); ABG HCO3 23.3 MMOL/L (20-26); ABG Oxygen Saturation 98.4 % (95-100); ABG PCO2 33.1 MM HG (35-48); ABG PH 7.429 (7.35-7.45); ABG TCO2 17.8 MMOL/L (23-27); Allen Test Positive; Pt O2 Delivery Device Ventilator
[2017-10-27] MEDS: methylPREDNISolone SOD SUC 40 MG/1 ML VIAL IV SCH ×3 (05:49→21:35)
[2017-10-27] MEDS: MEROPENEM 500 MG in SYRINGE 1 EACH IV SCH ×2 (05:51→18:00)
[2017-10-27] MEDS: THEOPHYLLINE 5.33 MG/ML 30 ML/BOTTLE PO SCH ×3 (05:55→21:38)
[2017-10-27] MEDS: ALBUTEROL 2 MG TABLET PO SCH ×3 (05:56→21:34)
[2017-10-27 06:35] LABS: Basophils # 0.1 10*3/uL (0.0-0.2); Basophils % 0.3 % (0.0-0.8); Hematocrit 22.1 VOL% (35.7-47.0); Immature Granulocytes Absolute 0.78 #; Lymphocytes # 0.5 10*3/uL (1.4-4.0); Lymphocytes % 2.5 % (21.3-54.2); Mean Corpuscular HGB Conc 36.2 GM/DL (32-36); Mean Corpuscular Hemoglobin 33 PG (27-34); Mean Corpuscular Volume 91.3 FL (87-102); Mean Platelet Volume 10.8 FL (9.6-12.0); Monocytes # 0.4 10*3/uL (0.11-0.8); Monocytes % 1.9 % (1.7-12.7); NRBC # 0.03 10*3/uL; Neutrophils # 17.6 10*3/uL (1.4-7.4); Neutrophils % 91.3 % (38.7-73.9); Platelet Count 168 T/CUMM (130-400); Red Blood Count 2.42 MC/CUMM (3.8-5.5); Red Cell Distribution Width 14.6 % (9.3-17.3); White Blood Count 19.3 T/CUMM (4-12)
[2017-10-27 07:03] LABS: Albumin 1.9 G/DL (3.4-5.0); Calcium 7.3 MG/DL (8.5-10.1); Osmolality,Calculated 309.4 MOS/KG (273-304); Potassium 3.7 MMOL/L (3.5-5.1)
[2017-10-27 07:05] LABS: Calcium 7.3 MG/DL (8.5-10.1); Osmolality,Calculated 310.4 MOS/KG (273-304); Potassium 3.7 MMOL/L (3.5-5.1)
[2017-10-27] MEDS: DORNASE ALFA 2.5 MG/2.5 ML VIAL RESP TX SCH ×2 (07:50→19:34)
[2017-10-27 08:07] LABS: Lymphocytes 2 % (20-55); Myelocytes 1 %; Segmented Neutrophils 96 % (50-85); Total Cells Counted 100
[2017-10-27 08:08] LABS: Microcytosis 1+; Platelet Estimate Adequate
[2017-10-27] MEDS ORDERED: FUROSEMIDE 40 MG/4 ML VIAL IV ONE (08:21)
[2017-10-27] MEDS: AMIODARONE 200 MG TABLET PO SCH ×2 (09:16→21:34)
[2017-10-27] MEDS: MULTIVITAMIN (OCUVITE) TABLET PO SCH ×2 (09:16→22:04)
[2017-10-27] MEDS: INSULIN REGULAR 100 UNIT/ML SUBCUT SCH ×4 (09:16→21:00)
[2017-10-27] MEDS: MONTELUKAST 10 MG TABLET PO SCH (09:17)
[2017-10-27] MEDS: NICOTINE 14 MG/24 HR PATCH TRANSDERM SCH (09:17)
[2017-10-27] MEDS: ISOSORBIDE MONONITRATE 30 MG TABLET PO SCH (09:17)
[2017-10-27] MEDS: FAMOTIDINE 20 MG TABLET PO SCH (09:18)
[2017-10-27] MEDS: PHENYLEPHRINE DRIP 40 MG/250 ML PREMIX IV SCH ×2 (09:54→22:33)
[2017-10-27] MEDS ORDERED: SODIUM CHLORIDE 0.9% 1,000 ML IV PRN (11:16)
[2017-10-27] MEDS: ACYCLOVIR INJ 500 MG in SODIUM CHLORIDE 0.9% 100 ML IV SCH (17:19)
[2017-10-27] MEDS: PRAVASTATIN 40 MG TABLET PO SCH (21:33)
[2017-10-28] MEDS: PROPOFOL 1,000 MG/100 ML BOTTLE IV SCH ×3 (01:10→17:46)
[2017-10-28] MEDS: ALBUTEROL/IPRATROPIUM 3 ML NEB RESP TX SCH ×4 (01:39→19:32)
[2017-10-28 04:13] LABS: Allen Test Positive; Pt O2 Delivery Device Ventilator
[2017-10-28 04:14] LABS: ABG HCO3 23.5 MMOL/L (20-26); ABG Oxygen Saturation 97.7 % (95-100); ABG PCO2 37.6 MM HG (35-48); ABG PH 7.402 (7.35-7.45); ABG PO2 97.4 MM HG (80-95); ABG TCO2 20.9 MMOL/L (23-27)
[2017-10-28 05:18] LABS: Basophils # 0.1 10*3/uL (0.0-0.2); Basophils % 0.3 % (0.0-0.8); Hematocrit 32.2 VOL% (35.7-47.0); Immature Granulocytes % 2.7 %; Immature Granulocytes Absolute 0.39 #; Lymphocytes # 0.3 10*3/uL (1.4-4.0); Lymphocytes % 2.3 % (21.3-54.2); Mean Corpuscular HGB Conc 35.4 GM/DL (32-36); Mean Corpuscular Hemoglobin 33 PG (27-34); Mean Platelet Volume 11.2 FL (9.6-12.0); Monocytes # 0.2 10*3/uL (0.11-0.8); Monocytes % 1.1 % (1.7-12.7); NRBC # 0.03 10*3/uL; Neutrophils # 13.6 10*3/uL (1.4-7.4); Neutrophils % 93.6 % (38.7-73.9); Platelet Count 119 T/CUMM (130-400); Red Cell Distribution Width 14.7 % (9.3-17.3); White Blood Count 14.5 T/CUMM (4-12)
[2017-10-28 05:32] LABS: Hemoglobin 11.4 GM/DL (12.0-16.0)
[2017-10-28 05:45] LABS: Band Neutrophils 5 % (0-10); Giant Platelets Few; Hypochromasia 1+; Lymphocytes 2 % (20-55); Ovalocytes Slight; Platelet Estimate Decreased; Segmented Neutrophils 92 % (50-85); Total Cells Counted 100
[2017-10-28 05:46] LABS: Microcytosis Slight
[2017-10-28 05:53] LABS: Calcium 7.5 MG/DL (8.5-10.1); Potassium 3.6 MMOL/L (3.5-5.1)
[2017-10-28 05:56] LABS: Albumin 1.9 G/DL (3.4-5.0); Calcium 7.6 MG/DL (8.5-10.1); Potassium 3.5 MMOL/L (3.5-5.1)
[2017-10-28] MEDS: MEROPENEM 500 MG in SYRINGE 1 EACH IV SCH (06:30)
[2017-10-28] MEDS: methylPREDNISolone SOD SUC 40 MG/1 ML VIAL IV SCH ×3 (06:44→22:18)
[2017-10-28] MEDS: THEOPHYLLINE 5.33 MG/ML 30 ML/BOTTLE PO SCH ×3 (06:44→22:20)
[2017-10-28] MEDS: ALBUTEROL 2 MG TABLET PO SCH ×3 (06:44→22:20)
[2017-10-28] MEDS: DORNASE ALFA 2.5 MG/2.5 ML VIAL RESP TX SCH ×2 (08:16→19:32)
[2017-10-28] MEDS: INSULIN REGULAR 100 UNIT/ML SUBCUT SCH ×4 (10:55→20:49)
[2017-10-28] MEDS: AMIODARONE 200 MG TABLET PO SCH (11:04)
[2017-10-28] MEDS: MULTIVITAMIN (OCUVITE) TABLET PO SCH ×2 (11:05→22:21)
[2017-10-28] MEDS: METOPROLOL TARTRATE 25 MG TABLET PO SCH ×2 (11:05→20:50)
[2017-10-28] MEDS: MONTELUKAST 10 MG TABLET PO SCH (11:05)
[2017-10-28] MEDS: ISOSORBIDE MONONITRATE 30 MG TABLET PO SCH (11:05)
[2017-10-28] MEDS: NICOTINE 14 MG/24 HR PATCH TRANSDERM SCH (11:13)
[2017-10-28] MEDS: PANTOPRAZOLE 40 MG VIAL IV SCH ×2 (11:15→22:18)
[2017-10-28] MEDS: AMIODARONE INJ 450 MG in DEXTROSE 5% 241 ML IV SCH (11:20)
[2017-10-28] MEDS ORDERED: PROPOFOL 200 MG/20 ML VIAL IV ONE (13:14)
[2017-10-28] MEDS ORDERED: ETOMIDATE 20 MG/10 ML VIAL IV ONE (13:14)
[2017-10-28] MEDS ORDERED: SKIN HEALING OINT (AQUAPHOR) 50 GM TUBE TOP PRN (15:59)
[2017-10-28] MEDS: ACYCLOVIR INJ 500 MG in SODIUM CHLORIDE 0.9% 100 ML IV SCH (17:38)
[2017-10-28] MEDS: ceFAZolin 1,000 MG in SYRINGE 1 EACH IV SCH (18:05)
[2017-10-28] MEDS: MORPHINE 10 MG/1 ML VIAL IV PRN (18:55)
[2017-10-28] MEDS ORDERED: PHENYLEPHRINE DRIP 40 MG/250 ML PREMIX IV ONE (20:58)
[2017-10-28] MEDS ORDERED: SODIUM CHLORIDE 0.9% 250 ML IV ONE ×2 (21:01→21:40)
[2017-10-28] MEDS: PHENYLEPHRINE DRIP 40 MG/250 ML PREMIX IV SCH (21:18)
[2017-10-28] MEDS: PRAVASTATIN 40 MG TABLET PO SCH (22:19)
[2017-10-28] MEDS: VASOPRESSIN 100 UNITS in SODIUM CHLORIDE 0.9% 95 ML IV SCH (22:20)
[2017-10-28 22:26] LABS: Basophils # 0.1 10*3/uL (0.0-0.2); Basophils % 0.3 % (0.0-0.8); Hematocrit 30.2 VOL% (35.7-47.0); Hemoglobin 10.5 GM/DL (12.0-16.0); Immature Granulocytes % 1.6 %; Immature Granulocytes Absolute 0.27 #; Lymphocytes # 0.2 10*3/uL (1.4-4.0); Lymphocytes % 0.9 % (21.3-54.2); Mean Corpuscular HGB Conc 34.8 GM/DL (32-36); Mean Corpuscular Hemoglobin 33 PG (27-34); Mean Corpuscular Volume 94.4 FL (87-102); Mean Platelet Volume 11.4 FL (9.6-12.0); Monocytes # 0.1 10*3/uL (0.11-0.8); Monocytes % 0.5 % (1.7-12.7); NRBC # 0.02 10*3/uL; Neutrophils % 96.7 % (38.7-73.9); Red Cell Distribution Width 14.6 % (9.3-17.3); White Blood Count 16.5 T/CUMM (4-12)
[2017-10-28 22:30] LABS: Platelet Count 104 T/CUMM (130-400)
[2017-10-28 22:44] LABS: Lactic Acid 0.9 MMOL/L (0.4-2.0)
[2017-10-28 22:51] LABS: Calcium 7.2 MG/DL (8.5-10.1); Osmolality,Calculated 321.4 MOS/KG (273-304); Potassium 3.3 MMOL/L (3.5-5.1)
[2017-10-28 22:54] LABS: ABG Base Excess 1.3 MMOL/L (-2.5-2.5); ABG HCO3 25.6 MMOL/L (20-26); ABG Oxygen Saturation 97.3 % (95-100); ABG PCO2 41.1 MM HG (35-48); ABG TCO2 23.3 MMOL/L (23-27)
[2017-10-29] MEDS: PROPOFOL 1,000 MG/100 ML BOTTLE IV SCH ×4 (00:38→19:11)
[2017-10-29] MEDS: ALBUTEROL/IPRATROPIUM 3 ML NEB RESP TX SCH ×4 (00:40→19:11)
[2017-10-29] MEDS: AMIODARONE INJ 450 MG in DEXTROSE 5% 241 ML IV SCH ×2 (02:06→16:26)
[2017-10-29 04:00] LABS: Band Neutrophils 3 % (0-10); Metamyelocytes 1 %; Segmented Neutrophils 96 % (50-85)
[2017-10-29 04:15] LABS: Anisocytosis 1+; Hypochromasia 1+; Platelet Estimate Decreased; Total Cells Counted 100
[2017-10-29 04:25] LABS: ABG Base Excess 0.7 MMOL/L (-2.5-2.5); ABG HCO3 24.4 MMOL/L (20-26); ABG Oxygen Saturation 96.8 % (95-100); ABG PCO2 35.8 MM HG (35-48); ABG PH 7.451 (7.35-7.45); ABG PO2 94.6 MM HG (80-95); ABG TCO2 25.5 MMOL/L (23-27)
[2017-10-29] MEDS: methylPREDNISolone SOD SUC 40 MG/1 ML VIAL IV SCH ×3 (05:45→20:33)
[2017-10-29] MEDS: ceFAZolin 1,000 MG in SYRINGE 1 EACH IV SCH ×2 (05:45→18:37)
[2017-10-29] MEDS: ALBUTEROL 2 MG TABLET PO SCH ×3 (05:45→23:57)
[2017-10-29] MEDS: THEOPHYLLINE 5.33 MG/ML 30 ML/BOTTLE PO SCH ×3 (05:45→23:57)
[2017-10-29 06:09] LABS: Basophils % 0.3 % (0.0-0.8); Hematocrit 32.1 VOL% (35.7-47.0); Hemoglobin 11.1 GM/DL (12.0-16.0); Immature Granulocytes % 0.8 %; Immature Granulocytes Absolute 0.11 #; Lymphocytes # 0.2 10*3/uL (1.4-4.0); Lymphocytes % 1.2 % (21.3-54.2); Mean Corpuscular HGB Conc 34.6 GM/DL (32-36); Mean Corpuscular Hemoglobin 33 PG (27-34); Mean Corpuscular Volume 95.5 FL (87-102); Monocytes % 0.2 % (1.7-12.7); Neutrophils # 12.7 10*3/uL (1.4-7.4); Neutrophils % 97.5 % (38.7-73.9); Red Blood Count 3.36 MC/CUMM (3.8-5.5); Red Cell Distribution Width 14.6 % (9.3-17.3)
[2017-10-29 06:10] LABS: Platelet Count 95 T/CUMM (130-400)
[2017-10-29 06:31] LABS: Albumin 1.7 G/DL (3.4-5.0); Calcium 7.4 MG/DL (8.5-10.1); Osmolality,Calculated 318.8 MOS/KG (273-304); Potassium 3.3 MMOL/L (3.5-5.1)
[2017-10-29] MEDS: MORPHINE 10 MG/1 ML VIAL IV PRN ×2 (06:34→13:55)
[2017-10-29 06:38] LABS: Calcium 7.6 MG/DL (8.5-10.1); Osmolality,Calculated 318.7 MOS/KG (273-304); Potassium 3.4 MMOL/L (3.5-5.1); Prealbumin 16.5 MG/DL (20-40)
[2017-10-29] MEDS: POTASSIUM CHLORIDE 20 MEQ TABLET PO PRN ×3 (06:38→11:31)
[2017-10-29] MEDS: DORNASE ALFA 2.5 MG/2.5 ML VIAL RESP TX SCH ×2 (07:26→19:25)
[2017-10-29] MEDS: VASOPRESSIN 100 UNITS in SODIUM CHLORIDE 0.9% 95 ML IV SCH (07:29)
[2017-10-29] MEDS: INSULIN REGULAR 100 UNIT/ML SUBCUT SCH ×3 (08:53→23:54)
[2017-10-29] MEDS: MULTIVITAMIN (OCUVITE) TABLET PO SCH ×2 (09:05→20:57)
[2017-10-29] MEDS: MONTELUKAST 10 MG TABLET PO SCH (09:05)
[2017-10-29] MEDS: ISOSORBIDE MONONITRATE 30 MG TABLET PO SCH (09:05)
[2017-10-29] MEDS: POLYETHYLENE GLYCOL POWDER 17 GM PACK NG SCH ×2 (09:05→21:11)
[2017-10-29] MEDS: METOPROLOL TARTRATE 25 MG TABLET PO SCH ×2 (09:06→20:58)
[2017-10-29] MEDS: NICOTINE 14 MG/24 HR PATCH TRANSDERM SCH (09:06)
[2017-10-29] MEDS: PANTOPRAZOLE 40 MG VIAL IV SCH ×2 (09:10→20:58)
[2017-10-29] MEDS ORDERED: GLUCAGON 1 MG VIAL IM PRN (10:26)
[2017-10-29 11:29] LABS: Band Neutrophils 10 % (0-10); Lymphocytes 2 % (20-55); Segmented Neutrophils 88 % (50-85); Total Cells Counted 100
[2017-10-29 11:30] LABS: Platelet Estimate Decreased; Target Cells Slight
[2017-10-29] MEDS ORDERED: MORPHINE 2 MG/1 ML SYRINGE ONE (13:53)
[2017-10-29] MEDS: DILTIAZEM 30 MG TABLET PO SCH ×2 (15:28→20:58)
[2017-10-29] MEDS: ACYCLOVIR INJ 500 MG in SODIUM CHLORIDE 0.9% 100 ML IV SCH (17:01)
[2017-10-29] MEDS ORDERED: SODIUM CHLORIDE 0.9% 250 ML IV ONE (20:46)
[2017-10-29] MEDS: PRAVASTATIN 40 MG TABLET PO SCH (20:58)
[2017-10-29] MEDS: SODIUM CHLORIDE 0.9% 1,000 ML IV SCH (20:58)
[2017-10-29] MEDS: PHENYLEPHRINE DRIP 40 MG/250 ML PREMIX IV SCH (22:11)
[2017-10-30] MEDS: ALBUTEROL/IPRATROPIUM 3 ML NEB RESP TX SCH ×4 (00:36→20:00)
[2017-10-30] MEDS: PROPOFOL 1,000 MG/100 ML BOTTLE IV SCH ×3 (00:48→13:20)
[2017-10-30 03:12] LABS: Allen Test Positive; Pt O2 Delivery Device Ventilator
[2017-10-30 03:13] LABS: ABG Base Excess -0.7 MMOL/L (-2.5-2.5); ABG HCO3 23.2 MMOL/L (20-26); ABG Oxygen Saturation 95.2 % (95-100); ABG PCO2 35.5 MM HG (35-48); ABG PH 7.433 (7.35-7.45); ABG PO2 81.4 MM HG (80-95); ABG TCO2 24.3 MMOL/L (23-27)
[2017-10-30 04:42] LABS: Basophils # 0.1 10*3/uL (0.0-0.2); Basophils % 0.4 % (0.0-0.8); Hematocrit 32.5 VOL% (35.7-47.0); Hemoglobin 11.1 GM/DL (12.0-16.0); Immature Granulocytes % 0.5 %; Immature Granulocytes Absolute 0.07 #; Lymphocytes # 0.2 10*3/uL (1.4-4.0); Lymphocytes % 1.6 % (21.3-54.2); Mean Corpuscular HGB Conc 34.2 GM/DL (32-36); Mean Corpuscular Hemoglobin 33 PG (27-34); Mean Corpuscular Volume 96.2 FL (87-102); Mean Platelet Volume 12.8 FL (9.6-12.0); Monocytes % 0.3 % (1.7-12.7); NRBC # 0.02 10*3/uL; Neutrophils # 13.3 10*3/uL (1.4-7.4); Neutrophils % 97.2 % (38.7-73.9); Platelet Count 55 T/CUMM (130-400); Red Blood Count 3.38 MC/CUMM (3.8-5.5); Red Cell Distribution Width 14.9 % (9.3-17.3); White Blood Count 13.7 T/CUMM (4-12)
[2017-10-30 04:59] LABS: Calcium 8.2 MG/DL (8.5-10.1); Osmolality,Calculated 316.3 MOS/KG (273-304); Potassium 3.5 MMOL/L (3.5-5.1)
[2017-10-30] MEDS: INSULIN REGULAR 100 UNIT/ML SUBCUT SCH ×3 (05:47→18:02)
[2017-10-30] MEDS: ceFAZolin 1,000 MG in SYRINGE 1 EACH IV SCH ×2 (05:51→18:03)
[2017-10-30] MEDS: ALBUTEROL 2 MG TABLET PO SCH ×3 (05:51→21:43)
[2017-10-30] MEDS: THEOPHYLLINE 5.33 MG/ML 30 ML/BOTTLE PO SCH ×3 (05:52→21:43)
[2017-10-30] MEDS: AMIODARONE INJ 450 MG in DEXTROSE 5% 241 ML IV SCH (07:21)
[2017-10-30] MEDS: methylPREDNISolone SOD SUC 40 MG/1 ML VIAL IV SCH ×2 (07:27→21:42)
[2017-10-30 08:08] LABS: Band Neutrophils 23 % (0-10); Lymphocytes 1 % (20-55); Segmented Neutrophils 76 % (50-85); Total Cells Counted 100
[2017-10-30 08:09] LABS: Platelet Estimate Decreased
[2017-10-30] MEDS: DORNASE ALFA 2.5 MG/2.5 ML VIAL RESP TX SCH ×2 (08:09→20:00)
[2017-10-30] MEDS: SODIUM CHLORIDE 0.9% 1,000 ML IV SCH (09:56)
[2017-10-30] MEDS: NICOTINE 14 MG/24 HR PATCH TRANSDERM SCH (10:52)
[2017-10-30] MEDS: METOPROLOL TARTRATE 25 MG TABLET PO SCH ×2 (10:53→21:42)
[2017-10-30] MEDS: POLYETHYLENE GLYCOL POWDER 17 GM PACK NG SCH ×2 (10:53→21:43)
[2017-10-30] MEDS: ISOSORBIDE MONONITRATE 30 MG TABLET PO SCH (10:53)
[2017-10-30] MEDS: MONTELUKAST 10 MG TABLET PO SCH (10:53)
[2017-10-30] MEDS: MULTIVITAMIN (OCUVITE) TABLET PO SCH ×2 (10:53→21:43)
[2017-10-30] MEDS: POTASSIUM CHLORIDE 20 MEQ/15 ML UDCUP PER TUBE SCH (10:54)
[2017-10-30] MEDS: PANTOPRAZOLE 40 MG VIAL IV SCH ×2 (10:54→21:43)
[2017-10-30] MEDS: DILTIAZEM 30 MG TABLET PO SCH ×3 (10:54→21:42)
[2017-10-30] MEDS: DEXTROSE 5% 1,000 ML IV SCH (12:24)
[2017-10-30] MEDS: POTASSIUM CHLORIDE 20 MEQ TABLET PO PRN (16:42)
[2017-10-30] MEDS: ACYCLOVIR INJ 500 MG in SODIUM CHLORIDE 0.9% 100 ML IV SCH (16:49)
[2017-10-30] MEDS: PRAVASTATIN 40 MG TABLET PO SCH (21:43)
[2017-10-30] MEDS: PHENYLEPHRINE DRIP 40 MG/250 ML PREMIX IV SCH (22:51)
[2017-10-31] MEDS: PROPOFOL 1,000 MG/100 ML BOTTLE IV SCH ×2 (00:25→07:15)
[2017-10-31] MEDS: INSULIN REGULAR 100 UNIT/ML SUBCUT SCH ×4 (00:40→17:51)
[2017-10-31] MEDS: ALBUTEROL/IPRATROPIUM 3 ML NEB RESP TX SCH ×4 (01:41→19:33)
[2017-10-31] MEDS: DEXTROSE 5% 1,000 ML IV SCH ×2 (02:53→18:04)
[2017-10-31 04:04] LABS: ABG Base Excess -6.4 MMOL/L (-2.5-2.5); ABG HCO3 19.2 MMOL/L (20-26); ABG Oxygen Saturation 96.4 % (95-100); ABG PCO2 36.7 MM HG (35-48); ABG PH 7.324 (7.35-7.45); ABG PO2 87.9 MM HG (80-95); ABG TCO2 17.5 MMOL/L (23-27)
[2017-10-31 04:53] LABS: Basophils % 0.4 % (0.0-0.8); Hematocrit 29.4 VOL% (35.7-47.0); Hemoglobin 9.8 GM/DL (12.0-16.0); Immature Granulocytes % 0.3 %; Immature Granulocytes Absolute 0.02 #; Lymphocytes # 0.2 10*3/uL (1.4-4.0); Lymphocytes % 2.2 % (21.3-54.2); Mean Corpuscular HGB Conc 33.3 GM/DL (32-36); Mean Corpuscular Hemoglobin 33 PG (27-34); Mean Corpuscular Volume 98.7 FL (87-102); Mean Platelet Volume 14.1 FL (9.6-12.0); Monocytes % 0.5 % (1.7-12.7); Neutrophils # 7.4 10*3/uL (1.4-7.4); Neutrophils % 96.6 % (38.7-73.9); Red Blood Count 2.98 MC/CUMM (3.8-5.5); Red Cell Distribution Width 15.1 % (9.3-17.3); White Blood Count 7.6 T/CUMM (4-12)
[2017-10-31 05:11] LABS: Platelet Count 28 T/CUMM (130-400)
[2017-10-31] MEDS: ceFAZolin 1,000 MG in SYRINGE 1 EACH IV SCH ×2 (05:27→14:20)
[2017-10-31 05:31] LABS: Band Neutrophils 5 % (0-10); Giant Platelets Few; Hypochromasia 1+; Lymphocytes 5 % (20-55); Ovalocytes Slight; Platelet Estimate Decreased; Segmented Neutrophils 90 % (50-85); Total Cells Counted 100
[2017-10-31 05:32] LABS: Microcytosis Slight
[2017-10-31 05:41] LABS: Calcium 7.7 MG/DL (8.5-10.1)
[2017-10-31] MEDS: THEOPHYLLINE 5.33 MG/ML 30 ML/BOTTLE PO SCH ×3 (06:45→21:54)
[2017-10-31] MEDS: ALBUTEROL 2 MG TABLET PO SCH ×3 (06:46→21:37)
[2017-10-31] MEDS: DORNASE ALFA 2.5 MG/2.5 ML VIAL RESP TX SCH ×2 (07:35→19:33)
[2017-10-31] MEDS ORDERED: LINEZOLID INJ 300 MG in PREMIX 1 EACH IV SCH (09:30)
[2017-10-31] MEDS: ISOSORBIDE MONONITRATE 30 MG TABLET PO SCH (09:32)
[2017-10-31] MEDS: methylPREDNISolone SOD SUC 40 MG/1 ML VIAL IV SCH ×2 (09:32→21:36)
[2017-10-31] MEDS: MONTELUKAST 10 MG TABLET PO SCH (09:33)
[2017-10-31] MEDS: POLYETHYLENE GLYCOL POWDER 17 GM PACK NG SCH ×2 (09:33→21:36)
[2017-10-31] MEDS: MULTIVITAMIN (OCUVITE) TABLET PO SCH ×2 (09:33→21:37)
[2017-10-31] MEDS: DILTIAZEM 30 MG TABLET PO SCH (09:33)
[2017-10-31] MEDS: METOPROLOL TARTRATE 25 MG TABLET PO SCH (09:33)
[2017-10-31] MEDS: PANTOPRAZOLE 40 MG VIAL IV SCH ×2 (09:33→21:36)
[2017-10-31] MEDS: POTASSIUM CHLORIDE 20 MEQ/15 ML UDCUP PER TUBE SCH (09:34)
[2017-10-31] MEDS: NICOTINE 14 MG/24 HR PATCH TRANSDERM SCH (09:34)
[2017-10-31] MEDS ORDERED: ACYCLOVIR INJ 250 MG in SODIUM CHLORIDE 0.9% 100 ML IV SCH (15:00)
[2017-10-31] MEDS ORDERED: TRACE ELEMENTS (5) 1 ML, MULTIVITAMIN INJ 10 ML in AMINO ACIDS/DEXT/LYTES 4.25-5% 2,000 ML IV SCH (17:00)
[2017-10-31] MEDS ORDERED: DEXTROSE 10% 1,000 ML IV PRN (17:00)
[2017-10-31] MEDS: PHENYLEPHRINE DRIP 40 MG/250 ML PREMIX IV SCH ×2 (21:37→23:28)
[2017-10-31] MEDS: AMIODARONE 200 MG TABLET PO SCH (21:37)
[2017-10-31] MEDS: PRAVASTATIN 40 MG TABLET PO SCH (21:37)
[2017-11-01] MEDS: ALBUTEROL/IPRATROPIUM 3 ML NEB RESP TX SCH ×4 (00:25→19:30)
[2017-11-01] MEDS: INSULIN REGULAR 100 UNIT/ML SUBCUT SCH ×4 (00:32→18:23)
[2017-11-01] MEDS: PROPOFOL 1,000 MG/100 ML BOTTLE IV SCH ×2 (00:33→06:49)
[2017-11-01] MEDS: ceFAZolin 1,000 MG in SYRINGE 1 EACH IV SCH (01:28)
[2017-11-01 04:51] LABS: ABG Base Excess -8.3 MMOL/L (-2.5-2.5); ABG HCO3 17.9 MMOL/L (20-26); ABG Oxygen Saturation 97.3 % (95-100); ABG PCO2 32.3 MM HG (35-48); ABG PH 7.324 (7.35-7.45); ABG PO2 98.8 MM HG (80-95); ABG TCO2 14.7 MMOL/L (23-27); Pt O2 Delivery Device Ventilator
[2017-11-01] MEDS: DEXTROSE 5% 1,000 ML IV SCH ×4 (06:49→22:00)
[2017-11-01] MEDS: ALBUTEROL 2 MG TABLET PO SCH ×3 (06:50→22:05)
[2017-11-01] MEDS: THEOPHYLLINE 5.33 MG/ML 30 ML/BOTTLE PO SCH ×3 (06:50→22:05)
[2017-11-01] MEDS: DORNASE ALFA 2.5 MG/2.5 ML VIAL RESP TX SCH ×2 (07:45→19:16)
[2017-11-01 08:05] LABS: Basophils % 1.4 % (0.0-0.8); Eosinophils % 0.3 % (0.00-10.9); Hematocrit 33.5 VOL% (35.7-47.0); Hemoglobin 11.4 GM/DL (12.0-16.0); Immature Granulocytes % 0.3 %; Immature Granulocytes Absolute 0.01 #; Lymphocytes # 0.2 10*3/uL (1.4-4.0); Lymphocytes % 7.9 % (21.3-54.2); Mean Corpuscular Hemoglobin 33 PG (27-34); Mean Corpuscular Volume 96.8 FL (87-102); Mean Platelet Volume 15.7 FL (9.6-12.0); Monocytes # 0.1 10*3/uL (0.11-0.8); Monocytes % 2.4 % (1.7-12.7); NRBC # 0.02 10*3/uL; Neutrophils # 2.6 10*3/uL (1.4-7.4); Neutrophils % 87.7 % (38.7-73.9); Red Blood Count 3.46 MC/CUMM (3.8-5.5); Red Cell Distribution Width 15.2 % (9.3-17.3); White Blood Count 2.9 T/CUMM (4-12)
[2017-11-01 08:15] LABS: Platelet Count 10 T/CUMM (130-400)
[2017-11-01 08:26] LABS: Band Neutrophils 2 % (0-10); Eosinophils 1 % (0-10); Lymphocytes 13 % (20-55); Metamyelocytes 1 %; Segmented Neutrophils 76 % (50-85); Total Cells Counted 100
[2017-11-01 08:28] LABS: Burr Cells Slight; Hypochromasia 1+; Microcytosis Slight; Platelet Estimate Decreased
[2017-11-01] MEDS: SODIUM CHLORIDE 0.9% 500 ML IV SCH ×3 (08:30→11:56)
[2017-11-01] MEDS: PHENYLEPHRINE DRIP 40 MG/250 ML PREMIX IV SCH (08:31)
[2017-11-01 08:34] LABS: Calcium 7.6 MG/DL (8.5-10.1); Osmolality,Calculated 306.1 MOS/KG (273-304); Potassium 4.8 MMOL/L (3.5-5.1)
[2017-11-01] MEDS ORDERED: SODIUM CHLORIDE 0.9% 1,000 ML IV PRN ×2 (08:57→09:19)
[2017-11-01] MEDS: NICOTINE 14 MG/24 HR PATCH TRANSDERM SCH (11:52)
[2017-11-01] MEDS: POLYETHYLENE GLYCOL POWDER 17 GM PACK NG SCH ×2 (11:53→22:04)
[2017-11-01] MEDS: AMIODARONE 200 MG TABLET PO SCH (11:53)
[2017-11-01] MEDS: PANTOPRAZOLE 40 MG VIAL IV SCH ×2 (11:53→22:05)
[2017-11-01] MEDS: methylPREDNISolone SOD SUC 40 MG/1 ML VIAL IV SCH ×2 (11:53→22:04)
[2017-11-01] MEDS: MULTIVITAMIN (OCUVITE) TABLET PO SCH ×2 (11:53→22:05)
[2017-11-01] MEDS: MONTELUKAST 10 MG TABLET PO SCH (11:53)
[2017-11-01] MEDS: POTASSIUM CHLORIDE 20 MEQ/15 ML UDCUP PER TUBE SCH (11:55)
[2017-11-01] MEDS: PHENYLEPHRINE INJ 160 MG in SODIUM CHLORIDE 0.9% 234 ML IV SCH (12:40)
[2017-11-01 14:26] LABS: Bilirubin,Direct 0.94 MG/DL (0.0-0.20); Bilirubin,Indirect 0.4 MG/DL (0.0-1.0); Bilirubin,Total 1.3 MG/DL (0.2-1.0); Total Protein 3.9 G/DL (6.4-8.3)
[2017-11-01] MEDS ORDERED: DIGOXIN 0.5 MG/2 ML AMP IV ONE (15:14)
[2017-11-01] MEDS ORDERED: AMIODARONE INJ 450 MG in DEXTROSE 5% 241 ML IV SCH (16:30)
[2017-11-01] MEDS ORDERED: TRACE ELEMENTS IV SCH (17:00)
[2017-11-01] MEDS ORDERED: MULTIVITAMIN IV SCH (17:00)
[2017-11-01] MEDS ORDERED: [UNRECOGNIZED DRUG - OTHER] IV SCH (17:00)
[2017-11-01] MEDS: metroNIDAZOLE INJ 500 MG in PREMIX 1 EACH IV SCH (22:04)
[2017-11-01] MEDS: PRAVASTATIN 40 MG TABLET PO SCH (22:04)
[2017-11-02] MEDS: ALBUTEROL/IPRATROPIUM 3 ML NEB RESP TX SCH ×4 (00:39→19:36)
[2017-11-02] MEDS: AMIODARONE INJ 450 MG in DEXTROSE 5% 241 ML IV SCH ×3 (01:03→22:57)
[2017-11-02] MEDS: INSULIN REGULAR 100 UNIT/ML SUBCUT SCH ×4 (01:18→18:00)
[2017-11-02] MEDS: PROPOFOL 1,000 MG/100 ML BOTTLE IV SCH ×2 (01:30→06:04)
[2017-11-02] MEDS: metroNIDAZOLE INJ 500 MG in PREMIX 1 EACH IV SCH ×3 (03:59→13:45)
[2017-11-02 04:27] LABS: ABG Base Excess -11.3 MMOL/L (-2.5-2.5); ABG HCO3 15.2 MMOL/L (20-26); ABG Oxygen Saturation 96.1 % (95-100); ABG PCO2 36.1 MM HG (35-48); ABG PH 7.241 (7.35-7.45); ABG PO2 95.2 MM HG (80-95); ABG TCO2 16.3 MMOL/L (23-27); Pt O2 Delivery Device Ventilator
[2017-11-02 04:34] LABS: Basophils % 1.6 % (0.0-0.8); Hematocrit 39.1 VOL% (35.7-47.0); Hemoglobin 13.2 GM/DL (12.0-16.0); Lymphocytes # 0.1 10*3/uL (1.4-4.0); Lymphocytes % 5.2 % (21.3-54.2); Mean Corpuscular HGB Conc 33.8 GM/DL (32-36); Mean Corpuscular Hemoglobin 32 PG (27-34); Mean Corpuscular Volume 95.4 FL (87-102); Mean Platelet Volume 12.6 FL (9.6-12.0); NRBC # 0.06 10*3/uL; Neutrophils # 1.8 10*3/uL (1.4-7.4); Neutrophils % 92.2 % (38.7-73.9); Red Cell Distribution Width 14.8 % (9.3-17.3); White Blood Count 1.9 T/CUMM (4-12)
[2017-11-02 04:38] LABS: Platelet Count 22 T/CUMM (130-400)
[2017-11-02 05:02] LABS: Calcium 7.4 MG/DL (8.5-10.1); Osmolality,Calculated 306.9 MOS/KG (273-304); Potassium 4.8 MMOL/L (3.5-5.1)
[2017-11-02 05:23] LABS: Band Neutrophils 14 % (0-10); Lymphocytes 3 % (20-55); Nucleated Red Blood Cells 2 (0-5); Segmented Neutrophils 81 % (50-85); Total Cells Counted 100
[2017-11-02 05:24] LABS: Burr Cells Slight; Giant Platelets Few; Hypochromasia Slight; Platelet Estimate Decreased
[2017-11-02 05:25] LABS: Microcytosis Slight
[2017-11-02] MEDS: DEXTROSE 5% 1,000 ML IV SCH (06:11)
[2017-11-02] MEDS: ALBUTEROL 2 MG TABLET PO SCH ×3 (06:13→23:24)
[2017-11-02] MEDS: THEOPHYLLINE 5.33 MG/ML 30 ML/BOTTLE PO SCH ×3 (06:39→23:24)
[2017-11-02] MEDS: DORNASE ALFA 2.5 MG/2.5 ML VIAL RESP TX SCH ×2 (07:12→19:36)
[2017-11-02] MEDS: POLYETHYLENE GLYCOL POWDER 17 GM PACK NG SCH ×2 (08:49→20:59)
[2017-11-02] MEDS: NICOTINE 14 MG/24 HR PATCH TRANSDERM SCH (08:49)
[2017-11-02] MEDS: methylPREDNISolone SOD SUC 40 MG/1 ML VIAL IV SCH ×2 (08:49→20:59)
[2017-11-02] MEDS: MONTELUKAST 10 MG TABLET PO SCH (08:49)
[2017-11-02] MEDS ORDERED: AMIODARONE 200 MG TABLET PO SCH (09:00)
[2017-11-02] MEDS: FAMOTIDINE INJ 40 MG in SODIUM CHLORIDE 0.9% 100 ML IV SCH (09:29)
[2017-11-02 09:37] LABS: Calcium 7.1 MG/DL (8.5-10.1); Osmolality,Calculated 309.8 MOS/KG (273-304); Potassium 4.9 MMOL/L (3.5-5.1)
[2017-11-02] MEDS: miSOPROStol 200 MCG TABLET PO SCH ×3 (12:05→20:59)
[2017-11-02] MEDS: MULTIVITAMIN (OCUVITE) TABLET PO SCH ×2 (12:05→20:59)
[2017-11-02] MEDS ORDERED: SODIUM CHLORIDE 0.9% 1,000 ML IV PRN (13:09)
[2017-11-02] MEDS ORDERED: TRACE ELEMENTS (5) 1 ML, MULTIVITAMIN INJ 10 ML, INSULIN REGULAR 40 UNIT in AMINO ACIDS... IV SCH (17:00)
[2017-11-02] MEDS: PHENYLEPHRINE INJ 160 MG in SODIUM CHLORIDE 0.9% 234 ML IV SCH (17:28)
[2017-11-02 18:31] LABS: Hematocrit 23.5 VOL% (35.7-47.0)
[2017-11-02] MEDS ORDERED: FUROSEMIDE 40 MG/4 ML VIAL IV ONE (19:18)
[2017-11-03] MEDS: INSULIN REGULAR 100 UNIT/ML SUBCUT SCH ×2 (00:18→05:58)
[2017-11-03] MEDS: ALBUTEROL/IPRATROPIUM 3 ML NEB RESP TX SCH ×3 (00:21→13:45)
[2017-11-03] MEDS: MORPHINE 2 MG/1 ML SYRINGE IV PRN ×4 (00:40→12:07)
[2017-11-03 04:14] LABS: ABG Base Excess -11.8 MMOL/L (-2.5-2.5); ABG HCO3 14.3 MMOL/L (20-26); ABG Oxygen Saturation 96.2 % (95-100); ABG PCO2 33.4 MM HG (35-48); ABG PO2 91.9 MM HG (80-95); ABG TCO2 15.3 MMOL/L (23-27)
[2017-11-03] MEDS: AMIODARONE INJ 450 MG in DEXTROSE 5% 241 ML IV SCH (04:35)
[2017-11-03] MEDS: PROPOFOL 1,000 MG/100 ML BOTTLE IV SCH (04:35)
[2017-11-03 04:38] LABS: Basophils % 0.7 % (0.0-0.8); Hematocrit 29.3 VOL% (35.7-47.0); Hemoglobin 9.9 GM/DL (12.0-16.0); Immature Granulocytes % 0.3 %; Immature Granulocytes Absolute 0.01 #; Lymphocytes # 0.2 10*3/uL (1.4-4.0); Lymphocytes % 7.7 % (21.3-54.2); Mean Corpuscular HGB Conc 33.8 GM/DL (32-36); Mean Corpuscular Hemoglobin 31 PG (27-34); Mean Corpuscular Volume 91.6 FL (87-102); Mean Platelet Volume 11.2 FL (9.6-12.0); Monocytes % 0.7 % (1.7-12.7); NRBC # 0.02 10*3/uL; Neutrophils # 2.7 10*3/uL (1.4-7.4); Neutrophils % 90.6 % (38.7-73.9); Platelet Count 40 T/CUMM (130-400); Red Cell Distribution Width 14.8 % (9.3-17.3)
[2017-11-03 05:06] LABS: Band Neutrophils 4 % (0-10); Giant Platelets Few; Hypochromasia 1+; Lymphocytes 11 % (20-55); Nucleated Red Blood Cells 1 (0-5); Ovalocytes Slight; Platelet Estimate Decreased; Segmented Neutrophils 84 % (50-85); Total Cells Counted 100
[2017-11-03 05:07] LABS: Microcytosis Slight
[2017-11-03] MEDS: THEOPHYLLINE 5.33 MG/ML 30 ML/BOTTLE PO SCH (06:02)
[2017-11-03] MEDS: ALBUTEROL 2 MG TABLET PO SCH (06:02)
[2017-11-03 06:08] LABS: Prealbumin 11.1 MG/DL (20-40)
[2017-11-03 06:20] LABS: Calcium 7.5 MG/DL (8.5-10.1); Osmolality,Calculated 302.2 MOS/KG (273-304); Potassium 5.3 MMOL/L (3.5-5.1)
[2017-11-03 08:38] LABS: Hematocrit 22.8 VOL% (35.7-47.0)
[2017-11-03] MEDS: DORNASE ALFA 2.5 MG/2.5 ML VIAL RESP TX SCH (08:45)
[2017-11-03] MEDS ORDERED: MORPHINE 2 MG/1 ML SYRINGE IV PRN (11:06)
[2017-11-03] MEDS: miSOPROStol 200 MCG TABLET PO SCH ×3 (11:16→19:34)
[2017-11-03] MEDS: POLYETHYLENE GLYCOL POWDER 17 GM PACK NG SCH (11:17)
[2017-11-03] MEDS: NICOTINE 14 MG/24 HR PATCH TRANSDERM SCH (11:18)
[2017-11-03] MEDS: MULTIVITAMIN (OCUVITE) TABLET PO SCH (11:19)
[2017-11-03] MEDS: MONTELUKAST 10 MG TABLET PO SCH (11:19)
[2017-11-03] MEDS: FAMOTIDINE INJ 40 MG in SODIUM CHLORIDE 0.9% 100 ML IV SCH (11:20)
[2017-11-03] MEDS: methylPREDNISolone SOD SUC 40 MG/1 ML VIAL IV SCH (11:20)
[2017-11-03 20:18] VITALS: BP 87/36
== END 2017-11-03 20:38 | disposition expired | DRG 166 ==
LOC: N.ED 15:46 → SUATTDRO 17:53 → N.EDINP 17:53 → N.ICU 18:57 → N.TELEN 10-20 14:40 → N.CVR 10-22 04:39 → N.ICU 10-22 11:42 → N.3E 11-03 20:04
PROVIDERS: ADMIT Family Medicine; ATTEND Internal Medicine